=== PATIENT | male | born 1960 | race African-American/Black ===

== ENCOUNTER 2018-07-30 18:08 | Emergency (ER) | payer MEDICARE, MEDICAID ==
--- NOTE | 2018-07-30 19:22 | RAD ---
RIGHT SHOULDER RADIOGRAPHS THREE VIEWS: 07/30/2018 PROVIDED CLINICAL HISTORY: Pain. 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 There is no evidence for fracture or other acute osseous abnormality. I f there is persistent clinical concern, conservative management and follow-up imaging are advised. IMPRESSION: As above. POS: [facility]
--- NOTE | 2018-07-30 19:23 | RAD ---
RIGHT HIP RADIOGRAPHS TWO VIEWS: 07/30/2018 PROVIDED CLINICAL HISTORY: Right hip pain. COMPARISON: 01/20/2015 FINDINGS: Postoperative changes of right total hip arthroplasty are demonstrated, without evidence for hardware complication. There is no evidence for fracture or other acute osseous abnormality. If there is pe rsistent clinical concern, conservative management and follow-up imaging are advised. IMPRESSION: As above. POS: [facility]
== END 2018-07-30 20:07 | disposition home or self-care (01) ==
LOC: NAV ERS 18:08
DX: M19.011 Primary osteoarthritis, right shoulder (principal); M16.11 Unilateral primary osteoarthritis, right hip; E11.9 Type 2 diabetes mellitus without complications; E78.5 Hyperlipidemia, unspecified; J45.909 Unspecified asthma, uncomplicated; F17.220 Nicotine dependence, chewing tobacco, uncomplicated; G47.30 Sleep apnea, unspecified; Z79.899 Other long term (current) drug therapy; Z79.891 Long term (current) use of opiate analgesic

== ENCOUNTER 2018-12-25 16:44 | Emergency (ER) | payer MEDICARE, MEDICAID ==
[2018-12-25] MEDS ORDERED: traMADol HCl 50 MG TAB ONE (17:07)
== END 2018-12-25 17:18 | disposition home or self-care (01) ==
LOC: NAV ERS 16:44
DX: M25.511 Pain in right shoulder (principal); I10 Essential (primary) hypertension; G47.30 Sleep apnea, unspecified; I49.9 Cardiac arrhythmia, unspecified; F17.220 Nicotine dependence, chewing tobacco, uncomplicated; E11.9 Type 2 diabetes mellitus without complications; E78.5 Hyperlipidemia, unspecified; Z79.891 Long term (current) use of opiate analgesic; Z79.899 Other long term (current) drug therapy
CPT/HCPCS: 93005

== ENCOUNTER 2019-05-28 10:22 | Emergency (ER) | payer MEDICARE, MEDICAID | END 2019-05-28 11:23 | disposition home or self-care (01) | LOC: NAV ERS 10:22 | DX: G89.29 Other chronic pain (principal); M25.512 Pain in left shoulder; M25.551 Pain in right hip; G47.30 Sleep apnea, unspecified; E11.9 Type 2 diabetes mellitus without complications; E78.5 Hyperlipidemia, unspecified; J45.909 Unspecified asthma, uncomplicated; F17.220 Nicotine dependence, chewing tobacco, uncomplicated; Z79.899 Other long term (current) drug therapy; Z79.891 Long term (current) use of opiate analgesic | CPT/HCPCS: 99283 ==

== ENCOUNTER 2021-01-06 15:56 | Emergency (ER) | payer MEDICARE, OTHER | END 2021-01-06 17:10 | disposition home or self-care (01) | LOC: NAV ERS 15:56 | DX: S46.911A Strain of unspecified muscle, fascia and tendon at shoulder and upper arm level, right arm, initial encounter (principal); G89.29 Other chronic pain; E11.9 Type 2 diabetes mellitus without complications; E78.5 Hyperlipidemia, unspecified; J45.909 Unspecified asthma, uncomplicated; F17.290 Nicotine dependence, other tobacco product, uncomplicated; Z79.899 Other long term (current) drug therapy; X58.XXXA Exposure to other specified factors, initial encounter ==

== ENCOUNTER 2021-05-16 16:26 | Emergency (ER) | payer MEDICARE, OTHER | END 2021-05-16 17:26 | disposition home or self-care (01) | LOC: NAV ERS 16:26 | DX: M79.671 Pain in right foot (principal); G47.30 Sleep apnea, unspecified; I49.9 Cardiac arrhythmia, unspecified; E11.9 Type 2 diabetes mellitus without complications; E78.5 Hyperlipidemia, unspecified; J45.909 Unspecified asthma, uncomplicated; F17.220 Nicotine dependence, chewing tobacco, uncomplicated; Z79.891 Long term (current) use of opiate analgesic; Z79.899 Other long term (current) drug therapy ==